=== PATIENT | female | born 1940 | race Caucasian/White ===

== ENCOUNTER 2022-05-09 08:02 | Outpatient (CLI) | payer MEDICARE | END 2022-05-09 08:03 | disposition home or self-care (01) | LOC: CSHWCC 08:02 | PROVIDERS: ATTEND Nurse Practitioner Family | DX: S91.202D Unspecified open wound of left great toe with damage to nail, subsequent encounter (principal); S91.205D Unspecified open wound of left lesser toe(s) with damage to nail, subsequent encounter | CPT/HCPCS: 11055; 97139; G0463; 99204 ==

== ENCOUNTER 2023-04-04 09:06 | Outpatient (CLI) | payer MEDICARE | END 2023-04-04 09:07 | disposition home or self-care (01) | LOC: CSHWCC 09:06 | PROVIDERS: ATTEND Nurse Practitioner Family | DX: L84 Corns and callosities (principal); E11.65 Type 2 diabetes mellitus with hyperglycemia | CPT/HCPCS: 97139; G0463; 99212 ==